=== PATIENT | male | born 1955 | race Caucasian/White ===

== ENCOUNTER 2018-10-14 14:24 | Emergency (ER) | payer OTHER ==
[2018-10-14] MEDS ORDERED: HYDROmorphONE/DILAUDID 2 MG/ML INJ IVP ONE (15:59)
--- NOTE | 2018-10-14 16:05 | EDPHY ---
General - History Smoking Status: Never smoked Time Seen by Provider: 10/14/18 15:59 Narrative: CLINICAL IMPRESSION: Minimally displaced right 8th rib fracture, right upper quadrant pain ASSESSMENT/PLAN: Patient is a 63-year-old male with no significant medical history who presents to the emergency department complaining of right chest wall pain after sustaining a fall down stairs 2 days prior. Patient is very uncomfortable appearing however not toxic-appearing. His lungs were clear to auscultation, his oxygen saturation was 95% on room air. His abdomen was soft, tender in the right upper quadrant without rebound or guarding. Chest x-ray revealed acute 8th rib fracture. Chest and abdominal CT revealed acute, minimally displaced 8th rib fracture no other acute intrathoracic or intra abdominal traumatic injuries identified including hemothorax, pneumothorax or solid organ injury. Patient was incidentally found to have extensive atherosclerotic disease as well as a mildly enlarged aorta at 4.1 cm. Per radiologist, patient found to have intramural thrombus in his abdominal aorta. Patient was given Dilaudid, Lidoderm patch was placed with improvement of his pain. Radiology reports were discussed with Dr. Maza who will resume care of the patient at this time. Case will likely be discussed with vascular surgery for further recommendations of incidental findings. On repeat examination the patient is much more comfortable appearing, states that his pain is controlled. His abdomen is soft , tenderness in the right upper quadrant without peritoneal signs. He remained hemodynamically stable. Dispo pending at this time. DIFFERENTIAL DX: Differential diagnosis includes but not limited to and in no certain order rib fracture, hemothorax, pneumothorax, solid organ injury ED COURSE: 1600: Case discussed with Dr. Maza 1737: Case discussed with Radiology, minimally displaced right AP rib fracture. Patient incidentally found to have extensive atherosclerotic disease , mildly dilated aorta at 4.1 as well as intramural thrombus of his abdominal aorta. These results were also discussed with Dr. Maza who will resume care of this patient at this time. 1740: On repeat examination the patient is well-appearing, he states that his pain is controlled. His abdomen is soft, mild tenderness in the right upper quadrant without evidence of a surgical abdomen. CHIEF COMPLAINT: Right chest wall pain HPI: Patient is a 63-year-old male with no significant medical history who presents to the emergency department with complaints of right chest and rib pain after sustaining a fall down several stairs 2 nights ago. Patient reports it was snowing, he was traveling down the outside stairways in crocks when he slipped falling down approximately 4 stairs. He fell directly onto his right chest, felt a crack at that time. Patient laid there for moment, was in significant pain and was assisted into the house by his son. Patient has been taking ibuprofen however is still having significant pain, particularly when he coughs or takes a deep breath. He denies any hemoptysis. He denies any significant abdominal pain, urinary symptoms or change in bowel habits. He denies any neck or back pain. He did hit his head and this no, he feels that it did not hit hard at all. He there was no loss of consciousness. He is not on any aspirin or anticoagulation. He denies any head pain, headache, dizziness, focal weakness or ataxia. PMH: Denies Family History: Noncontributory Social History: Denies cigarette smoking, denies illicit drug use, denies alcohol use REVIEW OF SYSTEMS: All other systems negative Constitutional: No fever, no chills, appetite change. Eyes: No discharge, vision change ENT: No sore throat, congestion, ear pain. Cardiovascular: Chest wall pain, denies palpitations. Respiratory: No cough, no shortness of breath. Gastrointestinal: No abdominal pain, no vomiting, diarrhea. Genitourinary: No hematuria, dysuria, flank pain, pelvic pain Musculoskeletal: Right-sided rib pain. No back pain, joint swelling, joint pain, myalgias. Skin: No rashes, color change. Neurological: No headache, dizziness, weakness. PHYSICAL EXAM: General Appearance: Well-developed, very uncomfortable appearing however not toxic-appearing. HENT: Normocephalic, atraumatic. Bilateral external ears are normal. Bilateral tympanic membranes are normal with pearly arce reflex. Nares are clear, mucosa is pink. Oropharynx is clear, uvula is midline. There is no tonsillar enlargement or exudate. The dentition is normal. Eyes: PERRLA, EOMI intact. Conjunctiva pink, no pallor or injection Neck: Supple, nontender, no lymphadenopathy, no midline pain, FROM. Respiratory: There are no retractions, lungs are clear to auscultation. Cardiac: Regular rate and rhythm, no murmurs or gallops. Gastrointestinal: Abdomen is soft, bowel sounds normal; patient with tenderness to palpation in his right upper quadrant, no masses/hernia, no rigidity, guarding or focal peritoneal findings. Back: No step-off, palpable bony abnormality, edema, erythema or ecchymosis of the cervical, thoracic or lumbar spines. Patient has no midline thoracic or lumbar spinal tenderness to palpation. 5/5 and equal strength of the UEs and LEs bilaterally including shoulder shrug. Pulses: 2+ and equal radial, DP and PT pulses bilaterally. Sensation intact and symmetric to light touch from face, UEs and LEs bilaterally. Patient with tenderness along the right posterior inferior rib cage into the axillary and anterior region. Neurological: Alert and oriented x 3, CN 2-12 grossly intact, normal gait no ataxia, DTR's intact, normal sensation and strength Skin: Warm, dry, no rashes, no nodules on palpation. Musculoskeletal: Extremities are symmetrical, full range of motion, no tenderness, deformity, swelling, or erythema. Psychiatric: Patient is oriented X 3, there is no agitation. MEDICAL DECISION MAKING: Patient was seen independently. Secondary supervising physician at time of evaluation was Dr. Maza, he also evaluated this patient. Diagnosis: Minimally displaced right 8th rib fracture. New, requires workup Summary: See Assessment and Plan for summary of ED visit Clinical lab tests: ordered / reviewed. Independent visualization of images, tracing, or specimens: Yes. Decision to obtain medical records or history from someone other than the patient: Yes, son Review / Summarize previous medical records: Yes Discussed patient with another provider: Yes, Dr. Maza Patient Progress: Stable, dispo pending. (Evelia Nash) Medical Decision Making: Independent physician evaluation: I evaluated and participated in the management of the patient. I also evaluated the patient independently. My co-signature indicates that I have reviewed this chart and I agree with the findings and plan of care as documented. My personal H&P findings include: Patient presents the ED for evaluation of right posterior chest wall pain following mechanical fall that occurred 2 days ago. The patient did not strike his head or lose consciousness. He denies significant headache, neck pain or acute neurologic symptoms. The patient does have some pain in his right flank and right ribs. Chest x-ray demonstrates a nondisplaced right rib fracture. CT scan of the chest abdomen and pelvis demonstrates no evidence of a pneumothorax or hemothorax. Patient did have an incidentally noted 4.1 cm abdominal aortic aneurysm. The patient is discharged home with customary rib fracture aftercare instructions. He is advised to follow up with Cardiology regarding his abdominal aortic aneurysm. He will need a ultrasound performed within 6 months. (Don Maza) - Diagnostics Imaging Results: Imaging Impressions Chest X-Ray 10/14/18 14:48 Impression: 1. Right eighth rib fracture posterolateral aspect. 2. No acute pulmonary disease. 3. Atherosclerotic tortuous aorta. 4. Scoliosis. 5. No pneumothorax. 6. Consider dedicated right rib series. Abdomen CT 10/14/18 15:58 Impression: 1. Nonobstructive bilateral nephrolithiasis. 2. No evidence of organ injury in the abdomen and pelvis or fracture. 3. 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 4. 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 Chest CT 10/14/18 15:58 Impression: 1. Minimally displaced fracture posterior lateral right eighth rib. 2. Moderate atherosclerotic calcification involving the coronary arteries. 3. Mildly dilated ascending aorta measuring 4.1 cm. Findings discussed with JAMES Mueller at 17:33 hour, 10/14/2018. - Objective Vital Signs: Initial Vital Signs Temperature (C) 37 C 10/14/18 14:39 Heart Rate 88 10/14/18 14:39 Respiratory Rate 18 10/14/18 14:39 Blood Pressure 134/90 H 10/14/18 14:39 O2 Sat (%) 95 10/14/18 14:39 O2 Delivery Mode Room Air Allergies/Adverse Reactions: No Known Allergies Allergy (Unverified 10/14/18 14:39) Home Medications: Medication Instructions Recorded Hydrocodone/APAP 5/325 [[place] 1 - 2 each PO Q6 PRN #20 tab 10/14/18 5/325] Laboratory Results: 10/14/18 10/14/18 16:26 16:23 POC Hgb 18.0 gm/dL H gm/dL 17.7 gm/dL H gm/dL (13.7-17.5) (13.7-17.5) POC Hct 53 % H % 52 % H % (40-51) (40-51) POC Sodium 141 mEq/L mEq/L 141 mEq/L mEq/L (135-145) (135-145) POC Potassium 4.1 mEq/L mEq/L 4.1 mEq/L mEq/L (3.3-5.0) (3.3-5.0) POC Chloride 104 mEq/L mEq/L 104 mEq/L mEq/L (97-110) (97-110) POC Total CO2 24 mEq/L mEq/L 24 mEq/L mEq/L (22-31) (22-31) POC BUN 15 mg/dL mg/dL 15 mg/dL mg/dL (7-23) (7-23) POC Creatinine 1.2 mg/dL mg/dL 1.2 mg/dL mg/dL (0.7-1.3) (0.7-1.3) POC Glucose 115 mg/dL H mg/dL 116 mg/dL H mg/dL (70-100) (70-100) Medications Given: Miscellaneous Information (Patch Removal) 1 ea TD DAILY21 ROBIN Stop: 04/12/19 20:59 Last Admin: 10/14/18 17:20 Dose: Not Given Discontinued Medications Hydrocodone Bitart/Acetaminophen ([place] 5/325) 1 tab PO EDNOW ONE Stop: 10/14/18 17:30 Last Admin: 10/14/18 17:40 Dose: 1 tab Hydromorphone HCl (Dilaudid) 0.5 mg IVP EDNOW ONE Stop: 10/14/18 16:00 Last Admin: 10/14/18 16:14 Dose: 0.5 mg Miscellaneous Medication (Icy Hot Lidocaine/Menthol 4%/1% Patch) 1 patch TD EDNOW ONE Stop: 10/14/18 16:52 Last Admin: 10/14/18 17:19 Dose: 1 patch Point of Care Test Results: Chemistry 10/14/18 10/14/18 16:26 16:23 POC Sodium 141 mEq/L mEq/L 141 mEq/L mEq/L (135-145) (135-145) POC Potassium 4.1 mEq/L mEq/L 4.1 mEq/L mEq/L (3.3-5.0) (3.3-5.0) POC Chloride 104 mEq/L mEq/L 104 mEq/L mEq/L (97-110) (97-110) POC Total CO2 24 mEq/L mEq/L 24 mEq/L mEq/L (22-31) (22-31) POC BUN 15 mg/dL mg/dL 15 mg/dL mg/dL (7-23) (7-23) POC Creatinine 1.2 mg/dL mg/dL 1.2 mg/dL mg/dL (0.7-1.3) (0.7-1.3) POC Glucose 115 mg/dL H mg/dL 116 mg/dL H mg/dL (70-100) (70-100) ISTAT H&H 10/14/18 10/14/18 16:26 16:23 POC Hgb 18.0 gm/dL H gm/dL 17.7 gm/dL H gm/dL (13.7-17.5) (13.7-17.5) POC Hct 53 % H % 52 % H % (40-51) (40-51) Departure - Departure Disposition: Home, Routine, Self-Care Clinical Impression: Abdominal aortic aneurysm (AAA) 3.0 cm to 5.5 cm in diameter in male Closed rib fracture Qualifiers: Encounter type: initial encounter Rib fracture type: single rib Laterality: right Qualified Code(s): S22.31XA - Fracture of one rib, right side, initial encounter for closed fracture Condition: Good Instructions: Rib Fracture (ED) Additional Instructions: DISCHARGE INSTRUCTIONS FROM YOUR DOCTOR Thank you for visiting our emergency department today. Please keep in mind that discharge from the emergency department does not mean that there is nothing wrong - it simply means that we have not identified an emergency condition that requires further evaluation or treatment in the hospital. You should always plan to follow up with primary care for re-evaluation of your condition in the next 2-3 days. Avoid tobacco and smoking. Avoid heavy lifting, pushing, pulling, carrying. Take deep breaths intentionally, several times per hour. As we discussed, guarding from the pain associated with a rib fracture or bruise, increases your risk for pneumonia or lung collapse. Apply ice on and off to the chest wall to decrease pain and swelling for the first 24-48 hours. Then apply ice or moist heat, whichever feels better. For pain control: You may take Tylenol, I recommend 500-1000 mg every 6-8 hours as needed. Take with food and a full glass of water. Stop taking if this is upsetting her stomach. Do not exceed 3000 mg in a 24 hr period. You may also take ibuprofen, recommend 400 mg every 6 hr. Take with food and a full glass of water. Stop taking if this upsets her stomach. Do not exceed 2400 mg in a 24 hr period. [place] as prescribed as needed for severe pain. Caution - this may cause dizziness and/or drowsiness. Do not combine with tylenol, alcohol, driving or operating heavy machinery. Be careful as this can be addictive and can cause constipation. Some patients require increased dietary fiber or use of a stool softener like Colace 100 mg daily to help with constipation. Salonpas lidocaine pain patch, apply as directed and follow instructions on the packaging. You may purchase this [id number] at your pharmacy. Schedule a follow-up visit with a primary care physician in the next 2-3 days for re-evaluation. Bring a copy of your test results with you to that appointment. (See our list if you don't have one). Return for increased or unmanageable pain, coughing up blood or discolored sputum, shortness of breath, pain in the center of your chest, rapid or irregular heart beat, unusual sweating, wheezing, chest pain, bloody urine, abdominal pain, vomiting, development of fever, chills, neck pain, neck stiffness, back pain, numbness, tingling, weakness of your arms or legs, change in or loss of bowel or bladder control, or for any other new, worsening or worrisome symptoms. People present with illnesses and injuries in different ways, and it is always possible that we have missed something. You may always return for re-evaluation if symptoms worsen or if they are not improving or if you develop new/different symptoms. Again, thank you for choosing our emergency department. We hope that you feel better. Your CT scan does show evidence of an abdominal aortic aneurysm. We recommend that you follow up with Cardiology within the next 6 months for a repeat ultrasound. You have been given the number of Dr. Mckinley from cardiology who would be happy to see you in follow-up. Referrals: Randall Yeboah MD [[facility] Primary Care Provider] - 1-2 days without fail (Please call and establish care to be seen) Fracisco Mckinley MD [Medical Doctor] - As per Instructions
[2018-10-14] MEDS ORDERED: IOPAMIDOL (ISOVUE-300) 100 ML BTL ONE (16:26)
[2018-10-14] MEDS ORDERED: LIDOCAINE 4%/MENTHOL 1% PATCH TD ONE (16:51)
[2018-10-14] MEDS ORDERED: HYDROCODONE/APAP 5/325 TAB PO ONE (17:29)
[2018-10-14 18:03] VITALS: BP 110/78
[2018-10-14] MEDS ORDERED: PATCH REMOVAL 1 EA PATCH TD SCH (21:00)
== END 2018-10-14 18:02 | disposition home or self-care (01) ==
DX: S22.31XA Fracture of one rib, right side, initial encounter for closed fracture (principal); W10.8XXA Fall (on) (from) other stairs and steps, initial encounter; Y92.017 Garden or yard in single-family (private) house as the place of occurrence of the external cause; I71.4 Abdominal aortic aneurysm, without rupture; I70.0 Atherosclerosis of aorta
CPT/HCPCS: 71046; 71260; 74177; 96374; 99285; J1170; Q9967; 82435-PO; 82565-PO; 82947-PO; 84132-PO; 84295-PO; 84520-PO; 85014-ER